=== PATIENT | male | born 1960 | race Caucasian/White ===

== ENCOUNTER 2017-01-03 13:12 | Emergency (ER) | payer BC ==
[~2017-01-03] VITALS: Ht 175.3 cm; Wt 81.1 kg
[~2017-01-03 13:12] MED LIST: AMB10 PO; BROM0.07 OPL; ESCI1TAB10 PO; LAMO200T38 PO; OFLO0.3S4 OPR; PRED1SUS3 OPL
[2017-01-03 13:17] VITALS: Ht 175.3 cm; Wt 81.1 kg
[2017-01-03] MEDS ORDERED: SODIUM CHLORIDE 0.9% 1000ML 1,000 ML IV STA (13:41)
[2017-01-03 14:20] LABS: BASO % 0.8 %; BASO ABS # 0.04 K/uL (0-0.2); COMPLETE YES; EOS % 4.7 %; HEMATOCRIT 42.3 % (42-52); IG% 0.2 %; LYMPH % 18.4 %; LYMPH ABS # 0.97 K/uL (1.2-3.4); MEAN CELL VOLUME 90.6 fL (80-100); MEAN CORPUSCULAR HEMOGLOBIN 31.3 pg (25-34); MEAN CORPUSCULAR HGB CONC 34.5 g/dl (32-36); MEAN PLATELET VOLUME 9.5 fL (7.4-10.4); MONO % 11.6 %; NEUT % 64.3 %; PLATELET COUNT 230 K/uL (130-400); RED BLOOD COUNT 4.67 M/uL (4.7-6.1); WHITE BLOOD COUNT 5.28 K/uL (4.8-10.8)
--- NOTE | 2017-01-03 14:30 | DIAGNOSTIC IMAGING REPORT ---
CHEST 2 VIEWS ROUTINE CLINICAL HISTORY: Cough. Fever. COMPARISON STUDY: No previous studies for comparison. FINDINGS: Lung volumes are normal. There is no pneumothorax. There is mild right lower lung opacity. Left lung is clear. Cardiac size is normal. Mediastinal contours are normal. IMPRESSION: Mild right lower lobe opacity which could reflect pneumonia or atelectasis. Radiographic follow up is recommended to ensure resolution. Electronically signed by: Blake Barney M.D. 01/03/2017 2:29 PM Dictated Date/Time: 01/03/2017 2:28 PM
[2017-01-03 14:36] LABS: URINE APPEARANCE CLEAR (CLEAR); URINE BILIRUBIN NEG (NEG); URINE COLOR DK YELLOW; URINE NITRITE NEG (NEG); URINE SPECIFIC GRAVITY 1.026 (1.000-1.030); UROBILINOGEN NEG (NEG)
[2017-01-03 14:45] LABS: MANUAL MICROSCOPIC REQUIRED? NO; REVIEW REQ? NO
[2017-01-03 14:54] LABS: BUN/CREATININE RATIO 18.5 (10-20); CALCIUM 9.5 mg/dl (8.5-10.1); CREATININE 0.73 mg/dl (0.60-1.40); POTASSIUM 3.6 mmol/L (3.5-5.1)
[2017-01-03 15:16] LABS: LYME DISEASE AB IGG NEG (NEG); LYME DISEASE AB IGM NEG (NEG)
[2017-01-03] MEDS ORDERED: DOXY100C2 PO (15:23)
[2017-01-03 16:03] VITALS: BP 126/80; PULSE 92; TEMP 36.9; O2SAT 95
--- NOTE | 2017-01-03 17:49 | EMERGENCY ROOM VISIT NOTE ---
History Report prepared by Casimiro: Tyron Barr Under the Supervision of: Dr. Maksim White M.D. First contact with patient: 13:30 Chief Complaint: FEVER Stated Complaint: FEVER, CHILLS, COUGH History of Present Illness The patient is a 56 year old male who presents to the Emergency Room with complaints of intermittent fevers for the past week. The fevers have ranged 99 to 101.5 degrees. He has been taking Tylenol and Ibuprofen. His illness started with right-sided chest tightness. He also complains of headache, fatigue, dry cough, and generalized muscle aches. The patient states his headache is mild. He states it mostly when he has his fevers. He has a very slight headache currently. He denies ear pain, neck pain or stiffness, sore throat, shortness of breath, urinary symptoms, or rashes. He has had some loose stools. The patient is an active runner. He has no history of diabetes, heart disease or hypertension. He has never had mono. He denies any recent tick bites. Source of History: patient Onset: one week ago Position: other (global) Symptom Intensity: 99-101.5 Quality: other (febrile) Timing: intermittent Associated Symptoms: + chest pain, + cough, + fatigue, + headache, No SOB, No neck pain, No rash, No sorethroat, No urinary symptoms Review of Systems See HPI for pertinent positives & negatives. A total of 10 systems reviewed and were otherwise negative. Past Medical & Surgical Surgical Problems: (1) History of cataract extraction Family History No pertinent family history Social History Smoking Status: Former Smoker Housing Status: lives with family Current/Historical Medications Scheduled Doxycycline Hyclate (Vibramycin), 100 MG PO BID Escitalopram Oxalate (Lexapro), 20 MG PO QAM Lamotrigine (Lamictal), 200 MG PO QAM Allergies Coded Allergies: No Known Allergies (Unverified , 01/03/17) Physical Exam Vital Signs Date Time Temp Pulse Resp B/P Pulse Ox O2 Delivery O2 Flow Rate FiO2 01/03/17 16:03 36.9 92 20 126/80 95 01/03/17 16:01 92 20 126/80 95 Room Air 01/03/17 13:17 36.9 100 20 133/85 95 Room Air Physical Exam Constitutional: Vital signs reviewed. Eyes: Pupils are equal round reactive to light. Conjunctiva are noninjected. ENT: Oropharynx has mild erythema without exudate. Mucous membranes are moist. Neck supple without meningeal signs. Respiratory: Clear to auscultation bilaterally. Breath sounds are equal bilaterally. Cardiovascular: Regular rate and rhythm. No rubs or gallops. GI: Soft, nondistended and nontender. Bowel sounds are present. No organomegaly. Musculoskeletal: No peripheral edema. No CVA tenderness. Integumentary: No cyanosis. No rash. Neurological: The patient is awake and alert. No focal deficits. Psychiatric: Normal affect. Medical Decision & Procedures ER Provider Diagnostic Interpretation: X-ray results as stated below per interpretation by me and the radiologist: CHEST 2 VIEWS ROUTINE CLINICAL HISTORY: Cough. Fever. COMPARISON STUDY: No previous studies for comparison. FINDINGS: Lung volumes are normal. There is no pneumothorax. There is mild right lower lung opacity. Left lung is clear. Cardiac size is normal. Mediastinal contours are normal. IMPRESSION: Mild right lower lobe opacity which could reflect pneumonia or atelectasis. Radiographic follow up is recommended to ensure resolution. Electronically signed by: Blake Barney M.D. 01/03/2017 2:29 PM Dictated Date/Time: 01/03/2017 2:28 PM Laboratory Results 01/03/17 13:50 Red Blood Count 4.67, Mean Corpuscular Volume 90.6, Mean Corpuscular Hemoglobin 31.3, Mean Corpuscular Hemoglobin Concent 34.5, Mean Platelet Volume 9.5, Neutrophils (%) (Auto) 64.3, Lymphocytes (%) (Auto) 18.4, Monocytes (%) (Auto) 11.6, Eosinophils (%) (Auto) 4.7, Basophils (%) (Auto) 0.8, Neutrophils # (Auto ) 3.40, Lymphocytes # (Auto) 0.97, Monocytes # (Auto) 0.61, Eosinophils # (Auto ) 0.25, Basophils # (Auto) 0.04 01/03/17 13:50 Test 01/03/17 13:50 01/03/17 13:55 01/03/17 14:10 White Blood Count 5.28 K/uL (4.8-10.8) Red Blood Count 4.67 M/uL (4.7-6.1) Hemoglobin 14.6 g/dL (14.0-18.0) Hematocrit 42.3 % (42-52) Mean Corpuscular Volume 90.6 fL (80-100) Mean Corpuscular Hemoglobin 31.3 pg (25-34) Mean Corpuscular Hemoglobin Concent 34.5 g/dl (32-36) Platelet Count 230 K/uL (130-400) Mean Platelet Volume 9.5 fL (7.4-10.4) Neutrophils (%) (Auto) 64.3 % Lymphocytes (%) (Auto) 18.4 % Monocytes (%) (Auto) 11.6 % Eosinophils (%) (Auto) 4.7 % Basophils (%) (Auto) 0.8 % Neutrophils # (Auto) 3.40 K/uL (1.4-6.5) Lymphocytes # (Auto) 0.97 K/uL (1.2-3.4) Monocytes # (Auto) 0.61 K/uL (0.11-0.59) Eosinophils # (Auto) 0.25 K/uL (0-0.5) Basophils # (Auto) 0.04 K/uL (0-0.2) RDW Standard Deviation 41.4 fL (36.4-46.3) RDW Coefficient of Variation 12.4 % (11.5-14.5) Immature Granulocyte % (Auto) 0.2 % Immature Granulocyte # (Auto) 0.01 K/uL (0.00-0.02) Anion Gap 7.0 mmol/L (3-11) Est Creatinine Clear Calc Drug Dose 111.7 ml/min Estimated GFR () 119.3 Estimated GFR (Non- 103.0 BUN/Creatinine Ratio 18.5 (10-20) Calcium Level 9.5 mg/dl (8.5-10.1) Total Bilirubin 0.5 mg/dl (0.2-1) Direct Bilirubin 0.1 mg/dl (0-0.2) Aspartate Amino Transf (AST/SGOT) 14 U/L (15-37) Alanine Aminotransferase (ALT/SGPT) 22 U/L (12-78) Alkaline Phosphatase 71 U/L (45-117) Total Protein 7.2 gm/dl (6.4-8.2) Albumin 3.3 gm/dl (3.4-5.0) Lyme Disease IgG Antibody NEG (NEG) Lyme Disease IgM Antibody NEG (NEG) Monoscreen NEG (NEG) Urine Color DK YELLOW Urine Appearance CLEAR (CLEAR) Urine pH 6.0 (4.5-7.5) Urine Specific [place] 1.026 (1.000-1.030) Urine Protein NEG (NEG) Urine Glucose (UA) NEG (NEG) Urine Ketones NEG (NEG) Urine Occult Blood NEG (NEG) Urine Nitrite NEG (NEG) Urine Bilirubin NEG (NEG) Urine Urobilinogen NEG (NEG) Urine Leukocyte Esterase NEG (NEG) Laboratory results as reviewed by me. Medications Administered Medications (Trade) Dose Ordered Sig/Jermaine Route Start Time Stop Time Status Last Admin Dose Admin Sodium Chloride (Nss 1000ml) 1,000 ml @ 999 mls/hr Q1H1M STAT IV 01/03/17 13:41 01/03/17 14:41 DC 01/03/17 13:57 999 MLS/HR ED Course 1335: The patient was evaluated in room B5. A complete history and physical exam was performed. 1341: NSS 1000 ml @ 999 mls/hr. 1520: The patient would like to go home. He will be called with the influenza results later. Medical Decision This is a 56-year-old male who presents with flulike symptoms and fever. Differential diagnosis includes influenza, infectious mononucleosis, Lyme disease, viral syndrome, pneumonia, UTI. I did perform a limited focused review of portions of the patient's old chart on the electronic medical record. The patient has had no recent pertinent visits to this hospital. I did evaluate the patient as noted above. He is presenting with flulike symptoms and fever. She does have an intermittent headache but has no meningeal signs. He states the headache is mostly when he has a fever. IV access was established. I did order blood cultures. The patient was treated with normal saline IV. I did order and personally review the patient's urinalysis and chest x-ray as described above. He does have a right-sided infiltrate which is consistent with where he was having chest discomfort earlier on in the course of his illness. I did order and review the patient's blood work as noted in the electronic medical record. Monospot and Lyme test are negative. Rapid flu test is pending. I did reassess the patient. I did discuss the test results with the patient. He was given a prescription for doxycycline and advised to follow up with his doctor. He was discharged in good condition. Impression Primary Impression: RLL pneumonia Scribe Attestation The scribe's documentation has been prepared under my direct and personally reviewed by me in its entirety. I confirm that the note above accurately reflects all work, treatment, procedures, and medical decision making performed by me. Departure Information Dispostion Home / Self-Care Prescriptions Doxycycline Hyclate (VIBRAMYCIN) 100 Mg Cap 100 MG PO BID for 10 Days, #20 CAP Prov: Maksim White M.D. 01/03/17 Referrals Rafat Guerrero D.O. (PCP) Forms HOME CARE DOCUMENTATION FORM, IMPORTANT VISIT INFORMATION Patient Instructions My [facility], Pneumonia Dc Additional Instructions You have been examined and treated today on an emergency basis only. This is not a substitute for, or an effort to provide, complete comprehensive medical care. It is impossible to recognize and treat all injuries or illnesses in a single emergency department visit. It is therefore important that you follow up closely with your physician. Call as soon as possible for an appointment. Return for worsening symptoms or if you develop trouble breathing, vomiting or any other concerning symptoms. Problem Qualifiers Primary Impression: RLL pneumonia Pneumonia type: due to unspecified organism Qualified Codes: J18.1 - Lobar pneumonia, unspecified organism
== END 2017-01-03 16:05 | disposition home or self-care (01) ==
LOC: C.EDB 13:14
DX: J18.9 Pneumonia, unspecified organism (principal); Z87.891 Personal history of nicotine dependence; Z79.899 Other long term (current) drug therapy